=== PATIENT | female | born 1960 | race Caucasian/White ===

== ENCOUNTER 2023-09-30 10:29 | Emergency (ER) | payer MEDICAID ==
[~2023-09-30] VITALS: Ht 154.9 cm; Wt 68.0 kg
[2023-09-30 10:45] VITALS: BP_SYST 114; PULSE 87; RESP 16; TEMP 97.9; O2SAT 98
[2023-09-30 11:17] VITALS: BP_SYST 114; PULSE 87; RESP 16; TEMP 97.9; O2SAT 98
== END 2023-09-30 11:17 | disposition left against medical advice (07) ==
LOC: SED 10:29
DX: K13.70 Unspecified lesions of oral mucosa (principal); Z79.899 Other long term (current) drug therapy
CPT/HCPCS: 99281